=== PATIENT | female | born 1955 | race Caucasian/White ===

== ENCOUNTER 2016-07-01 11:37 | Emergency (ER) | payer BC ==
[2016-07-01 11:49] VITALS: BP 141/73
--- NOTE | 2016-07-01 12:12 | UC ---
Bite Injury/Animal HPI - HPI Summary HPI Summary: complaint of tick bite in her head tried to pull it out but couldnnt get it out thinks it was attached for less than 24 hours feels itchy - History of Current Complaint Chief Complaint: [employer] Stated Complaint: TICK BITE Time Seen by Provider: 07/01/16 12:06 Hx Obtained From: Patient - Allergies/Home Medications Allergies/Adverse Reactions: Allergies Allergy/AdvReac Type Severity Reaction Status Date / Time Penicillin V Allergy Unknown Unknown Verified 02/08/15 13:13 [From Penicillin VK Reaction Potassium] Details PMH/Surg Hx/FS Hx/Imm Hx Previously Healthy: Yes Endocrine History Of: Reports: Thyroid Disease Denies: Diabetes Cardiovascular History Of: Denies: Cardiac Disorders, Hypertension Respiratory History Of: Denies: COPD, Asthma GI/ History Of: Denies: Ulcer Cancer History Of: Denies: Breast Cancer - Surgical History Surgical History: Yes Surgery Procedure, Year, and Place: Sinus Surgery 08/2010, Thyroidectomy 1995 - Family History Known Family History: Positive: Other - cancer Negative: Cardiac Disease, Hypertension, Diabetes - Social History Occupation: Employed Full-time Lives: With Family Alcohol Use: Weekly Alcohol Amount: 3x's per week Substance Use Type: None Smoking Status (MU): Never Smoked Tobacco Have You Smoked in the Last Year: No - Immunization History Most Recent Tetanus Shot: within 5 years Review of Systems Constitutional: Negative Skin: Other - tick bite Eyes: Negative ENT: Negative Respiratory: Negative Cardiovascular: Negative Gastrointestinal: Negative Genitourinary: Negative Motor: Negative Neurovascular: Negative Musculoskeletal: Negative Neurological: Negative Psychological: Negative All Other Systems Reviewed And Are Negative: Yes Physical Exam Triage Information Reviewed: Yes Appearance: No Pain Distress, Well-Nourished Vital Signs: Initial Vital Signs Temp 98.2 F 07/01/16 11:42 Pulse 70 07/01/16 11:42 Resp 16 07/01/16 11:42 BP 141/73 07/01/16 11:42 Pulse Ox 97 07/01/16 11:42 Vital Signs Reviewed: Yes Eyes: Positive: Conjunctiva Clear ENT: Positive: Pharynx normal, TMs normal Neck: Positive: No Lymphadenopathy Respiratory: Positive: Lungs clear, Normal breath sounds, No respiratory distress Cardiovascular: Positive: RRR, No Murmur, Pulses Normal Bowel Sounds: Positive: Present Musculoskeletal: Positive: No Edema Neurological: Positive: Alert Psychological Exam: Normal Skin: Positive: Other - top of head with tick embedded in it Procedures - Procedure Summary Procedure Summary: tick removed from top of head with splinter forceps without difficulty Bite Injury Course/Dx - Course Course Of Treatment: exam completed tick removed- doesn't meet criteria for prophlaxis treatment for lyme - Differential Dx/Diagnosis Provider Diagnoses: tick bite Discharge - Discharge Plan Condition: Stable Disposition: HOME Patient Education Materials: Tick Bite (ED) Referrals: Black Lugo MD [Primary Care Provider] - Additional Instructions: Take acetaminophen or ibuprofen for fever or pain Please review your discharge instructions. If your symptoms do not improve please call your primary care provider or return to urgent care. Your blood pressure is elevated. Please contact your primary care provider within 1 day -4 weeks for further evaluation.
== END 2016-07-01 12:25 | disposition home or self-care (01) ==
LOC: UCEAST 11:37
DX: E07.9 Disorder of thyroid, unspecified (principal); S00.96XA Insect bite (nonvenomous) of unspecified part of head, initial encounter; Z88.0 Allergy status to penicillin; W57.XXXA Bitten or stung by nonvenomous insect and other nonvenomous arthropods, initial encounter
CPT/HCPCS: 99211; G0463